=== PATIENT | male | born 1955 | race Caucasian/White ===

== ENCOUNTER 2019-04-11 00:22 | Emergency (ER) | payer OTHER ==
[~2019-04-11] VITALS: Ht 172.7 cm; Wt 108.9 kg
[2019-04-11 01:53] LABS: Source, Urine Catheter
[2019-04-11 01:55] LABS: Bilirubin, Urine Neg (Neg); Blood, Urine 1+ (Neg); Glucose Qualitative, Urine Neg (Neg); Ketones, Urine Neg (Neg); Leukocyte Esterase, Urine 1+ (Neg); Nitrite, Urine Neg (Neg); Protein, Urine Neg (Neg); Urobilinogen, Urine NORM (Normal)
[2019-04-11 01:58] LABS: BASOPHILS ABSOLUTE AUTO 0.04 K/mm3 (0.00-0.23); BASOPHILS PERCENT AUTO 0 % (0-2); EOSINOPHILS ABSOLUTE AUTO 0.05 K/mm3 (0.00-0.68); EOSINOPHILS PERCENT AUTO 0 % (0-6); Hematocrit 44.7 % (37.0-53.0); Hemoglobin 14.8 g/dL (13.5-17.5); IMMATURE GRAN ABSOLUTE AUTO 0.13 K/mm3 (0.00-0.10); IMMATURE GRAN PERCENT AUTO 1 % (0-1); LYMPHOCYTES ABSOLUTE AUTO 2.01 K/mm3 (0.84-5.20); LYMPHOCYTES PERCENT AUTO 15 % (21-46); MONOCYTES ABSOLUTE AUTO 1.21 K/mm3 (0.16-1.47); MONOCYTES PERCENT AUTO 9 % (4-13); Mean Corpuscular HGB 30.3 pg (26.0-34.0); Mean Corpuscular HGB Conc 33.1 g/dL (31.5-36.5); Mean Corpuscular Volume 92 fL (80-100); Mean Platelet Volume 10.2 fL (9.1-12.4); NEUTROPHILS ABSOLUTE AUTO 9.65 K/mm3 (1.96-9.15); NEUTROPHILS PERCENT AUTO 74 % (41-73); Platelet Count 226 K/mm3 (150-400); RDW Standard Deviation 43.8 fL (35.1-46.3); Red Blood Cell Count 4.88 M/mm3 (4.30-5.90); White Blood Cell Count 13.09 K/mm3 (4.00-11.30)
[2019-04-11 02:00] LABS: Appearance, Urine Clear (Clear); Color, Urine Yellow (P-Yellow)
[2019-04-11 02:01] LABS: Bacteria Rare /hpf; Squamous Epithelial Cells Not Seen /hpf (Few)
[2019-04-11 02:06] LABS: Alanine Aminotransfer (ALT/SGP 29 U/L (12-78); Albumin, Blood 3.9 g/dL (3.4-5.0); Albumin/Globulin Ratio 1.3 (0.8-1.8); Alk Phos 65 U/L (50-136); Anion Gap 8 mmol/L (6-16); Aspartate Aminotrans (AST/SGOT 19 U/L (12-37); Bilirubin, Total 1.5 mg/dL (0.1-1.0); Blood Urea Nitrogen 14 mg/dL (8-24); CO2, Blood 27 mmol/L (21-32); Calcium, Blood 8.8 mg/dL (8.5-10.1); Chloride, Blood 100 mmol/L (98-108); Creatinine, Blood 0.87 mg/dL (0.60-1.20); Globulin, Blood 3.1 g/dL (2.2-4.0); Glomerular Filtration Rate >60 (60-); Glucose, Blood 129 mg/dL (70-99); Magnesium, Blood 1.9 mg/dL (1.6-2.4); Potassium, Blood 3.1 mmol/L (3.5-5.5); Sodium, Blood 135 mmol/L (136-145)
[2019-04-11] MEDS ORDERED: Flomax0.4 MG PO (02:40)
[2019-04-11] MEDS ORDERED: Metformin HCl1000 MG PO (14:06)
[2019-04-11] MEDS ORDERED: HYDR1TAB94 PO (16:22)
== END 2019-04-11 03:21 | disposition home or self-care (01) ==
LOC: ER 00:22
PROVIDERS: Emergency Medicine
DX: R33.9 Retention of urine, unspecified (principal)
CPT/HCPCS: 51701; 51798; 80053; 81001; 83605; 83690; 83735; 84145; 85025; 87086; 99283-25

== ENCOUNTER 2021-12-27 10:20 | Day surgery (SDC) | payer MEDICARE ==
[~2021-12-27] VITALS: Ht 172.7 cm; Wt 110.2 kg
[~2021-12-27 10:20] MED LIST: Flomax0.4 MG PO; HYDR1TAB94 PO; Metformin HCl1000 MG PO
[2021-12-27] MEDS ORDERED: ASPI325 PO (10:45)
[2021-12-27] MEDS ORDERED: Amlodipine Bes2.5 MG PO (10:45)
[2021-12-27] MEDS ORDERED: ESCI10 PO (10:46)
[2021-12-27] MEDS ORDERED: ALLEGRA ALLERG180 MG PO (10:47)
[2021-12-27] MEDS ORDERED: MONT10T (10:47)
[2021-12-27] MEDS ORDERED: LOSARTAN-HCTZ1 EACH PO (10:47)
[2021-12-27] MEDS ORDERED: ROSU10TA PO (10:48)
== END 2021-12-27 12:46 | disposition home or self-care (01) ==
LOC: ORSCSDS 10:20
PROVIDERS: Ophthalmology
PROC: 08RJ3JZ Replacement of Right Lens with Synthetic Substitute, Percutaneous Approach (ICD-10-PCS; principal; 2021-12-27 11:30)
DX: H25.13 Age-related nuclear cataract, bilateral (principal); I10 Essential (primary) hypertension; E11.8 Type 2 diabetes mellitus with unspecified complications; Z86.73 Personal history of transient ischemic attack (TIA), and cerebral infarction without residual deficits; E66.01 Morbid (severe) obesity due to excess calories; Z68.36 Body mass index [BMI] 36.0-36.9, adult; Z79.82 Long term (current) use of aspirin; Z79.899 Other long term (current) drug therapy
CPT/HCPCS: J2001; J2250; J3301; J7040; V2632

== ENCOUNTER 2022-01-17 11:29 | Day surgery (SDC) | payer MEDICARE ==
[~2022-01-17] VITALS: Ht 172.7 cm; Wt 89.4 kg
[~2022-01-17 11:29] MED LIST changes: +ALLEGRA ALLERG180 MG PO; +ASPI325 PO; +Amlodipine Bes2.5 MG PO; +ESCI10 PO; +LOSARTAN-HCTZ1 EACH PO; +MONT10T; +ROSU10TA PO
--- NOTE | 2022-01-17 11:58 | NUR ---
01/17/22 1158 Augusto Lucas AT 1152 PLEBRIANET AT 1157
== END 2022-01-17 13:18 | disposition home or self-care (01) ==
LOC: ORSCSDS 11:29
PROVIDERS: Ophthalmology
PROC: 08RK3JZ Replacement of Left Lens with Synthetic Substitute, Percutaneous Approach (ICD-10-PCS; principal; 2022-01-17 12:45)
DX: H25.12 Age-related nuclear cataract, left eye (principal); E11.36 Type 2 diabetes mellitus with diabetic cataract; H52.202 Unspecified astigmatism, left eye; Z87.891 Personal history of nicotine dependence; I10 Essential (primary) hypertension; E78.00 Pure hypercholesterolemia, unspecified; Z79.899 Other long term (current) drug therapy; Z79.82 Long term (current) use of aspirin; Z86.73 Personal history of transient ischemic attack (TIA), and cerebral infarction without residual deficits
CPT/HCPCS: 82947; J2001; J2250; J3010; J3301; J7040; V2632

== ENCOUNTER 2022-10-15 09:22 | Day surgery (SDC) | payer MEDICARE ==
[~2022-10-15] VITALS: Ht 172.7 cm; Wt 107.7 kg
[2022-10-15] MEDS ORDERED: BUPR75 (10:13)
[2022-10-15] MEDS ORDERED: OMEP20ER (10:14)
== END 2022-10-15 11:35 | disposition home or self-care (01) ==
LOC: ORSCSDS 09:22
PROVIDERS: Surgery
PROC: 0DBL8ZX Excision of Transverse Colon, Via Natural or Artificial Opening Endoscopic, Diagnostic (ICD-10-PCS; principal; 2022-10-15 10:30)
DX: R19.5 Other fecal abnormalities (principal); Z86.010 Personal history of colon polyps; D12.3 Benign neoplasm of transverse colon; K57.30 Diverticulosis of large intestine without perforation or abscess without bleeding; E78.5 Hyperlipidemia, unspecified; I10 Essential (primary) hypertension; R73.03 Prediabetes; G47.33 Obstructive sleep apnea (adult) (pediatric); I63.9 Cerebral infarction, unspecified; Z87.891 Personal history of nicotine dependence; E66.9 Obesity, unspecified; Z68.36 Body mass index [BMI] 36.0-36.9, adult; Z79.899 Other long term (current) drug therapy
CPT/HCPCS: 82947; 88305; J2704; J7120

== ENCOUNTER 2023-08-22 00:22 | Day surgery (SDC) | payer OTHER ==
[~2023-08-22 00:22] MED LIST changes: +BUPR75; +OMEP20ER
[2023-08-22 09:52] VITALS: BP 144/72
[2023-08-22] MEDS ORDERED: ALLEGRA ALLERG180 MG PO (11:47)
[2023-08-22] MEDS ORDERED: Aspir 8181 MG PO (11:47)
[2023-08-22] MEDS ORDERED: BUPROPION XL150 M1 PO (11:48)
[2023-08-22] MEDS ORDERED: MONT10T (11:50)
[2023-08-22] MEDS ORDERED: LOSA50 PO (11:50)
[2023-08-22] MEDS ORDERED: METF500C (11:50)
[2023-08-22] MEDS ORDERED: SODCHL2SO BOTHEYES (11:50)
[2023-08-22] MEDS ORDERED: NYSTRIT TOP (11:51)
[2023-08-22] MEDS ORDERED: Pataday2.5 ML BOTHEYES (11:52)
[2023-08-22] MEDS ORDERED: ROSU10TA PO (11:52)
[2023-08-22] MEDS ORDERED: Ginseng100 MG PO (11:53)
[2023-08-22] MEDS ORDERED: TRIA50 PO (11:53)
[2023-08-22] MEDS ORDERED: TOCO1000 PO (11:55)
[2023-08-22] MEDS ORDERED: THERA-D2000 UNIT PO (11:55)
[2023-08-22] MEDS ORDERED: HYDROCORTISONE30 GM TOP (11:56)
== END 2023-08-22 11:14 | disposition home or self-care (01) ==
LOC: ATC 00:22
DX: D50.9 Iron deficiency anemia, unspecified (principal); K21.9 Gastro-esophageal reflux disease without esophagitis; R73.03 Prediabetes; I11.0 Hypertensive heart disease with heart failure; I50.30 Unspecified diastolic (congestive) heart failure; G47.33 Obstructive sleep apnea (adult) (pediatric); E78.5 Hyperlipidemia, unspecified; F32.9 Major depressive disorder, single episode, unspecified
CPT/HCPCS: 96365; J2916

== ENCOUNTER 2023-08-29 02:54 | Day surgery (SDC) | payer OTHER ==
[~2023-08-29 02:54] MED LIST changes: +Aspir 8181 MG PO; +BUPROPION XL150 M1 PO; +Ginseng100 MG PO; +HYDROCORTISONE30 GM TOP; +LOSA50 PO; +METF500C; +NYSTRIT TOP; +Pataday2.5 ML BOTHEYES; +SODCHL2SO BOTHEYES; +THERA-D2000 UNIT PO; +TOCO1000 PO; +TRIA50 PO
[2023-08-29 10:04] VITALS: BP 120/68
== END 2023-08-29 11:11 | disposition home or self-care (01) ==
LOC: ATC 02:54
DX: D50.9 Iron deficiency anemia, unspecified (principal); K21.9 Gastro-esophageal reflux disease without esophagitis; G47.33 Obstructive sleep apnea (adult) (pediatric); F32.9 Major depressive disorder, single episode, unspecified; I50.32 Chronic diastolic (congestive) heart failure; I11.0 Hypertensive heart disease with heart failure
CPT/HCPCS: 96365; J2916

== ENCOUNTER 2023-09-05 05:03 | Day surgery (SDC) | payer OTHER ==
[2023-09-05 10:10] VITALS: BP 163/84
== END 2023-09-05 11:15 | disposition home or self-care (01) ==
LOC: ATC 05:03
DX: D50.9 Iron deficiency anemia, unspecified (principal); K21.9 Gastro-esophageal reflux disease without esophagitis; G47.33 Obstructive sleep apnea (adult) (pediatric); F32.9 Major depressive disorder, single episode, unspecified; H01.004 Unspecified blepharitis left upper eyelid; I50.30 Unspecified diastolic (congestive) heart failure; I11.0 Hypertensive heart disease with heart failure
CPT/HCPCS: 96365; J2916

== ENCOUNTER 2023-09-12 02:48 | Day surgery (SDC) | payer OTHER ==
[2023-09-12 10:00] VITALS: BP 139/86
== END 2023-09-12 23:09 | disposition home or self-care (01) ==
LOC: ATC 02:48
DX: D50.9 Iron deficiency anemia, unspecified (principal); K21.9 Gastro-esophageal reflux disease without esophagitis; I50.32 Chronic diastolic (congestive) heart failure; G47.33 Obstructive sleep apnea (adult) (pediatric); I11.0 Hypertensive heart disease with heart failure
CPT/HCPCS: 96365; J2916